=== PATIENT | female | born 2000 | race Caucasian/White ===

== ENCOUNTER 2024-01-21 03:17 | Inpatient (IN) | payer OTHER, SELFPAY ==
[2024-01-21 03:26] VITALS: BP 136/86; BMI 22.8
[2024-01-21 03:58] LABS: % Basophils 0.2 % (0-2); % Eosinophils 0.8 % (0-6); % Immature Granulocytes 0.7 % (0-0.5); % Monocytes 7.8 % (1.7-9.3); % Neutrophils 74.5 % (42.2-75.2); Absolute Eosinophils 0.1 10^3/uL (0-0.7); Absolute Immature Granulocytes 0.1 10^3/uL (0-0.05); Absolute Lymphocytes 1.7 10^3/uL (1.2-3.4); Absolute Monocytes 0.8 10^3/uL (0.1-0.6); Absolute Neutrophils 7.7 10^3/uL (1.4-6.5); Hematocrit 31.5 % (37.0-47.0); Hemoglobin 10.7 g/dL (12.0-16.0); Mean Corpuscular Hgb 27.5 pg (27.0-31.0); Mean Platelet Volume 11.9 fL (7.4-10.4); Nucleated Red Blood Cells % 0 %; Platelet Count 200 10^3/uL (130-400); Red Blood Cell Count 3.89 10^6/uL (4.20-5.40); Red Cell Dist. Width 13.5 % (11.5-14.5); White Blood Cell Count 10.3 10^3/uL (4.8-10.8)
[2024-01-21] MEDS: PENICILLIN 110 UNITS IV (04:14)
[2024-01-21 04:48] LABS: Rubella Positive
[2024-01-21 04:52] LABS: Hepatitis B Surface Antigen Negative (Negative)
[2024-01-21] MEDS: SUBLIMAZE 100 MCG EPIDURAL (05:01)
[2024-01-21] MEDS: FENTANYL/BUPIVACAINE 100 EPIDURAL (05:01)
[2024-01-21 05:02] LABS: HIV Combo Negative (Negative)
[2024-01-21 05:10] LABS: Hepatitis C Antibody Negative (Negative)
[2024-01-21] MEDS: PENICILLIN 55 UNITS IV (07:59)
[2024-01-21 08:27] LABS: Cord ABG Comment CORD BLOOD
[2024-01-21 08:31] LABS: B.E. Cord ABG -6.2 mMOL/L; HCO3 Cord ABG 19.6 mmol/L; O2 Saturation % Cord ABG 47.5 %; PCO2 Cord ABG 39 mmHg; PO2 Cord ABG 23 mmHg; pH Cord ABG 7.31
[2024-01-21 08:35] LABS: B.E. Cord ABG -9.1 mMOL/L; HCO3 Cord ABG 20.3 mmol/L; O2 Saturation % Cord ABG 33.1 %; PCO2 Cord ABG 57 mmHg; PO2 Cord ABG 21 mmHg; pH Cord ABG 7.16
[2024-01-21 08:53] LABS: Urine Albumin Trace (Neg - Trace); Urine Bilirubin Negative (Negative); Urine Character Clear (Clear); Urine Color Yellow; Urine Glucose Negative (Negative); Urine Ketone 3+ (Negative); Urine Leukocyte Negative (Negative); Urine Nitrite Negative (Negative); Urine Occult Blood Negative (Negative); Urine Specific Gravity 1.015 (<1.030); Urine Urobilinogen Negative (Neg - 1+)
[2024-01-21 09:08] LABS: Amphetamines Positive (Negative); Barbiturates Negative (Negative); Benzodiazepines Negative (Negative); Buprenorphine Negative (Negative); Cocaine Negative (Negative); Marijuana Positive (Negative); Methadone Negative (Negative); Methamphetamines Positive (Negative); Opiates Negative (Negative); Phencyclidine Negative (Negative); Tricyclic Antidepressants Negative (Negative)
[2024-01-21 09:35] LABS: Fentanyl, Urine Positive (Negative)
[2024-01-21 10:22] LABS: ALT (SGPT) 22 U/L (0-35); AST (SGOT) 30 U/L (14-36); Albumin 2.9 g/dl (3.5-5.0); Alkaline Phosphatase 232 U/L (38-126); Blood Urea Nitrogen 8 mg/dl (7-17); Calcium 8.6 mg/dl (8.4-10.2); Chloride 108 mmol/L (98-107); Estimated Creatinine Clearance > 125 ml/min; Glucose 90 mg/dl (70-99); Potassium 3.8 mmol/L (3.5-5.1); Sodium 132 mmol/L (135-145); Total Bilirubin 0.3 mg/dl (0.2-1.3); Total Protein 5.5 g/dl (6.3-8.2); eGFR > 60.00
[2024-01-21 10:32] LABS: Urine Protein 40 mg/dl
[2024-01-21 10:54] LABS: Carbon Dioxide 20 mmol/L (22-30)
[2024-01-21 11:41] LABS: Protein/creatinine Ratio 0.3
[2024-01-22 05:19] LABS: Hematocrit 29.4 % (37.0-47.0); Hemoglobin 9.7 g/dL (12.0-16.0)
[2024-01-22] MEDS: MOTRIN 600 MG PO ×2 (11:44→22:50)
--- NOTE | 2024-01-22 13:55 | CM ---
Blueprinting Machine Operator met with new mom Loretta at bedside
Mom sleepy, difficult to arouse
Lives in home with her boyfriend David Capone (FOB) at listed address
Mom reports she did not know she was , she did not have care. She plans to keep . Support person is RASHID Capone
Mom reports she may name baby Blanca Capone
Mom plans to breast feed . Does not have a breast pump - given order form for pump
Mom did not have supplies, reports her boyfriend has purchased some baby supplies including car seat
Unsure of rehabilitation services director at this time - importance of f/u care acknowledged by Mom
Given information about the [facility] program and how to apply
Mom had a positive toxicology screen - + for amphetamines, methamphetamines, marijuana and fentanyl
Baby meconium screen + for amphetamines
Mom endorses illicit drug use. Reports does not keep drugs in home. 'We like to democrat'
Mom informed that [facility] would be notified of + tox screen and a report would be made. Aware would have to remain in the hospital until [facility] had completed their investigation and developed a safety plan for infant.
Called [facility] , spoke with Shakeel (#[phone])
Report filed
CY [address] faxed to [phone]
Received call from Renee Villarreal from [facility]
residential worker will be assigned in AM
Baby can not be d/c'ed until C&Y have completed their investigation and have a Safety Plan in Place
Dr Hale made aware
[2024-01-22] MEDS: FEOSOL 325 MG PO (16:28)
[2024-01-22] MEDS: PRENATAL PLUS 1 TABLET PO (16:29)
[2024-01-22] MEDS: FEOSOL PO (21:16)
[2024-01-22] MEDS: TYLENOL 650 MG PO (22:50)
[2024-01-23] MEDS: MOTRIN 600 MG PO (08:13)
[2024-01-23] MEDS: PRENATAL PLUS 1 TABLET PO (08:13)
[2024-01-23] MEDS: FEOSOL 325 MG PO (08:13)
--- NOTE | 2024-01-23 16:18 | CM ---
Received call from post- nurse - concerned mom not interacting with baby
Placed call to [facility] [phone]
Spoke with bilingual case manager assigned to case - Barbara
Discussed concerns - bonding, infant interaction
Per bilingual case manager plan is to see Mom and Baby tomorrow 01/23 approx 1PM
Spoke with Mom Loretta - aware bilingual case manager will be at hospital tomorrow to see her and infant
Infant is not to be d/c'ed until children [facility] youth complete assessment and safety plan
[2024-01-23] MEDS: TYLENOL 650 MG PO (17:39)
[2024-01-23] MEDS: SENOKOT-S 1 TABLET PO (17:39)
[2024-01-23 18:06] LABS: Amphetamines Negative (Negative); Barbiturates Negative (Negative); Benzodiazepines Negative (Negative); Buprenorphine Negative (Negative); Cocaine Negative (Negative); Marijuana Negative (Negative); Methadone Negative (Negative); Methamphetamines Negative (Negative); Opiates Negative (Negative); Phencyclidine Negative (Negative); Tricyclic Antidepressants Negative (Negative)
[2024-01-24 14:34] LABS: Syphilis/T. pallidum Ab Reflex Negative (Negative)
== END 2024-01-23 18:41 | disposition home or self-care (01) | DRG 807 ==
LOC: LDRP 03:17
PROVIDERS: Obstetrics & Gynecology; ADMITTING PHYSICIAN Obstetrics & Gynecology
PROC: 10E0XZZ Delivery of Products of Conception, External Approach (ICD-10-PCS; 2024-01-21)
DX: O99.324 Drug use complicating childbirth (principal); Z37.0 Single live birth; O77.0 Labor and delivery complicated by meconium in amniotic fluid; Z3A.37 37 weeks gestation of pregnancy; F14.90 Cocaine use, unspecified, uncomplicated; O99.314 Alcohol use complicating childbirth
CPT/HCPCS: 88307; 80053; 80306; 80307; 81003; 82570; 82803; 84156; 85014; 85018; 85025; 86762; 86780; 86803; 86850; 86900; 86901; 87086; 87340; 87389; 87491; 87591